=== PATIENT | female | born 1940 | race Caucasian/White ===

== ENCOUNTER 2019-01-18 08:54 | Outpatient (CLI) | payer OTHER | END 2019-01-18 09:01 | disposition home or self-care (01) | LOC: LAB 08:54 | DX: D50.8 Other iron deficiency anemias (principal); I10 Essential (primary) hypertension; D72.818 Other decreased white blood cell count; M06.89 Other specified rheumatoid arthritis, multiple sites; J84.10 Pulmonary fibrosis, unspecified; E78.2 Mixed hyperlipidemia; D51.0 Vitamin B12 deficiency anemia due to intrinsic factor deficiency; D51.1 Vitamin B12 deficiency anemia due to selective vitamin B12 malabsorption with proteinuria; D51.8 Other vitamin B12 deficiency anemias; M32.8 Other forms of systemic lupus erythematosus; M32.10 Systemic lupus erythematosus, organ or system involvement unspecified; M34.1 CR(E)ST syndrome; M33.22 Polymyositis with myopathy; M35.01 Sjogren syndrome with keratoconjunctivitis ==

== ENCOUNTER 2019-04-12 09:27 | Outpatient (CLI) | payer OTHER | END 2019-04-12 09:33 | disposition home or self-care (01) | LOC: LAB 09:27 | DX: D50.8 Other iron deficiency anemias (principal); I10 Essential (primary) hypertension; D72.818 Other decreased white blood cell count; M35.01 Sjogren syndrome with keratoconjunctivitis; M06.89 Other specified rheumatoid arthritis, multiple sites; J84.10 Pulmonary fibrosis, unspecified; E78.2 Mixed hyperlipidemia; D51.8 Other vitamin B12 deficiency anemias; E03.8 Other specified hypothyroidism; R97.0 Elevated carcinoembryonic antigen [CEA]; R97.8 Other abnormal tumor markers; M32.8 Other forms of systemic lupus erythematosus; M35.3 Polymyalgia rheumatica; M32.10 Systemic lupus erythematosus, organ or system involvement unspecified; M34.83 Systemic sclerosis with polyneuropathy; M34.1 CR(E)ST syndrome; M35.00 Sjogren syndrome, unspecified ==

== ENCOUNTER → 2019-08-14 09:23 | Outpatient (CLI) | payer OTHER | END | disposition home or self-care (01) | LOC: LAB 09:23 | PROVIDERS: ATTEND Internal Medicine Hematology & Oncology | DX: D50.8 Other iron deficiency anemias (principal); I10 Essential (primary) hypertension; R70.0 Elevated erythrocyte sedimentation rate; D51.8 Other vitamin B12 deficiency anemias; E03.8 Other specified hypothyroidism; R97.0 Elevated carcinoembryonic antigen [CEA]; R97.8 Other abnormal tumor markers; D72.818 Other decreased white blood cell count; M35.01 Sjogren syndrome with keratoconjunctivitis; M06.89 Other specified rheumatoid arthritis, multiple sites; J84.10 Pulmonary fibrosis, unspecified; E78.2 Mixed hyperlipidemia; Z60.2 Problems related to living alone; I25.2 Old myocardial infarction; I35.1 Nonrheumatic aortic (valve) insufficiency; I34.0 Nonrheumatic mitral (valve) insufficiency; I36.8 Other nonrheumatic tricuspid valve disorders; I37.8 Other nonrheumatic pulmonary valve disorders; I70.0 Atherosclerosis of aorta; I67.2 Cerebral atherosclerosis; K21.9 Gastro-esophageal reflux disease without esophagitis; Q40.1 Congenital hiatus hernia; K76.0 Fatty (change of) liver, not elsewhere classified; T85.79XD Infection and inflammatory reaction due to other internal prosthetic devices, implants and grafts, subsequent encounter; M85.89 Other specified disorders of bone density and structure, multiple sites; M15.0 Primary generalized (osteo)arthritis; M54.2 Cervicalgia; M54.6 Pain in thoracic spine; S12.9XXS Fracture of neck, unspecified, sequela; M35.02 Sjogren syndrome with lung involvement; J84.112 Idiopathic pulmonary fibrosis; L63.8 Other alopecia areata; E55.9 Vitamin D deficiency, unspecified; Z68.26 Body mass index [BMI] 26.0-26.9, adult; Z87.11 Personal history of peptic ulcer disease; N39.0 Urinary tract infection, site not specified ==

== ENCOUNTER 2019-12-24 09:10 | Outpatient (CLI) | payer OTHER | END 2019-12-24 09:15 | disposition home or self-care (01) | LOC: LAB 09:10 | PROVIDERS: ATTEND Internal Medicine Hematology & Oncology | DX: D50.8 Other iron deficiency anemias (principal); R97.0 Elevated carcinoembryonic antigen [CEA]; R97.8 Other abnormal tumor markers; D55.0 Anemia due to glucose-6-phosphate dehydrogenase [G6PD] deficiency; D72.818 Other decreased white blood cell count; M35.01 Sjogren syndrome with keratoconjunctivitis; J84.10 Pulmonary fibrosis, unspecified; I10 Essential (primary) hypertension ==

== ENCOUNTER 2020-06-12 08:57 | Outpatient (CLI) | payer OTHER | END 2020-06-12 15:28 | disposition home or self-care (01) | LOC: LAB 08:57 | PROVIDERS: ATTEND Internal Medicine Hematology & Oncology | DX: M35.01 Sjogren syndrome with keratoconjunctivitis (principal); R06.09 Other forms of dyspnea; M05.79 Rheumatoid arthritis with rheumatoid factor of multiple sites without organ or systems involvement ==

== ENCOUNTER 2020-07-22 13:12 | Emergency (ER) | payer OTHER ==
[~2020-07-22] VITALS: Ht 149.9 cm; Wt 53.1 kg
[2020-07-22] MEDS ORDERED: PROAIR HFA8.5 GM (13:28)
[2020-07-22] MEDS ORDERED: RAYOS1 MG (13:29)
[2020-07-22] MEDS ORDERED: SIMVASTATIN5 MG (13:35)
[2020-07-22] MEDS ORDERED: CARVEDILOL ER40 MG (13:35)
[2020-07-22] MEDS ORDERED: LOSARTAN-HCTZ1 EAC2 (13:35)
[2020-07-22] MEDS ORDERED: PEPCID AC20 MG (13:35)
[2020-07-22] MEDS ORDERED: PROTONIX40 MG (13:36)
[2020-07-22] MEDS ORDERED: CARAFATE1 GM (13:36)
[2020-07-22] MEDS ORDERED: AMLODIPINE-OLM1 EAC2 (13:36)
[2020-07-22] MEDS ORDERED: MAXIMUM D3325 MCG (13:37)
[2020-07-22] MEDS ORDERED: MUCINEX DM ER1 EAC1 (13:37)
[2020-07-22] MEDS ORDERED: CHILDREN'S ASPI81 MG (13:37)
[2020-07-22] MEDS ORDERED: XOPENEX HFA15 GM (13:38)
== END 2020-07-22 20:25 | disposition home or self-care (01) ==
LOC: ER 13:12
DX: R10.84 Generalized abdominal pain (principal); R19.7 Diarrhea, unspecified

== ENCOUNTER 2020-10-29 09:48 | Outpatient (CLI) | payer OTHER ==
[~2020-10-29 09:48] MED LIST: AMLODIPINE-OLM1 EAC2; CARAFATE1 GM; CARVEDILOL ER40 MG; CHILDREN'S ASPI81 MG; LOSARTAN-HCTZ1 EAC2; MAXIMUM D3325 MCG; MUCINEX DM ER1 EAC1; PEPCID AC20 MG; PROAIR HFA8.5 GM; PROTONIX40 MG; RAYOS1 MG; SIMVASTATIN5 MG; XOPENEX HFA15 GM
== END 2020-10-29 09:50 | disposition home or self-care (01) ==
LOC: LAB 09:48
PROVIDERS: ATTEND Internal Medicine Hematology & Oncology
DX: D50.8 Other iron deficiency anemias (principal); R79.89 Other specified abnormal findings of blood chemistry; I10 Essential (primary) hypertension; R74.02 Elevation of levels of lactic acid dehydrogenase [LDH]; K76.89 Other specified diseases of liver; D51.8 Other vitamin B12 deficiency anemias; R97.0 Elevated carcinoembryonic antigen [CEA]; R97.8 Other abnormal tumor markers; D51.3 Other dietary vitamin B12 deficiency anemia; D72.818 Other decreased white blood cell count; M35.01 Sjogren syndrome with keratoconjunctivitis; M06.89 Other specified rheumatoid arthritis, multiple sites; J84.10 Pulmonary fibrosis, unspecified; E78.2 Mixed hyperlipidemia

== ENCOUNTER 2020-10-30 09:49 | Outpatient (CLI) | payer OTHER | END 2020-10-30 09:52 | disposition home or self-care (01) | LOC: TOM 09:49 | PROVIDERS: ATTEND Internal Medicine Hematology & Oncology | DX: Q33.8 Other congenital malformations of lung (principal); K76.0 Fatty (change of) liver, not elsewhere classified | CPT/HCPCS: 71260; Q9965 ==

== ENCOUNTER 2020-11-17 09:45 | Outpatient (CLI) | payer OTHER | END 2020-11-17 09:50 | disposition home or self-care (01) | LOC: RX STUDY 09:45 | PROVIDERS: ATTEND Internal Medicine Gastroenterology | DX: K57.30 Diverticulosis of large intestine without perforation or abscess without bleeding (principal); K21.9 Gastro-esophageal reflux disease without esophagitis; K76.0 Fatty (change of) liver, not elsewhere classified; K30 Functional dyspepsia ==

== ENCOUNTER 2020-12-18 09:54 | Outpatient (CLI) | payer OTHER | END 2020-12-18 10:01 | disposition home or self-care (01) | LOC: TOM 09:54 | PROVIDERS: ATTEND Internal Medicine Gastroenterology | DX: K57.30 Diverticulosis of large intestine without perforation or abscess without bleeding (principal); K62.5 Hemorrhage of anus and rectum; Z12.11 Encounter for screening for malignant neoplasm of colon ==

== ENCOUNTER 2021-10-13 13:03 | Outpatient (CLI) | payer OTHER | END 2021-10-13 13:19 | disposition home or self-care (01) | LOC: NUCLEAR 13:03 | PROVIDERS: ATTEND Internal Medicine Hematology & Oncology | DX: K82.9 Disease of gallbladder, unspecified (principal); Z88.1 Allergy status to other antibiotic agents | CPT/HCPCS: 78227; A9537 ==

== ENCOUNTER 2021-10-20 11:07 | Outpatient (CLI) | payer OTHER | END 2021-10-20 11:15 | disposition home or self-care (01) | LOC: SONOGRAMA 11:07 | PROVIDERS: ATTEND Internal Medicine Hematology & Oncology | DX: K80.20 Calculus of gallbladder without cholecystitis without obstruction (principal); K82.9 Disease of gallbladder, unspecified ==